=== PATIENT | female | born 1985 | race Caucasian/White ===

== ENCOUNTER → 2016-11-14 | Outpatient (CLI) | payer OTHER ==
[~2016-11-14] MED LIST: IBU600 MG PO; PERCOCET 325 MG1 TA2 PO; TRANDATE 100MG100 MG PO
== END ==
LOC: SUN.DIA 11:30
DX: O24.419 Gestational diabetes mellitus in pregnancy, unspecified control (principal); Z3A.32 32 weeks gestation of pregnancy
CPT/HCPCS: G0108

== ENCOUNTER → 2016-11-26 | Outpatient (CLI) | payer OTHER | LOC: SUN.DIA 11:45 | DX: O24.419 Gestational diabetes mellitus in pregnancy, unspecified control (principal); Z3A.33 33 weeks gestation of pregnancy | CPT/HCPCS: G0108 ==

== ENCOUNTER 2016-12-12 11:51 | Inpatient (IN) | payer OTHER ==
[~2016-12-12] VITALS: Ht 167.7 cm; Wt 88.6 kg
[2017-01-10] VITALS (66 sets, daily range): BP systolic 113–147; BP diastolic 56–85; PULSE 68–113; TEMP 97.4–98.9
[2017-01-10] MEDS ORDERED: TRANDATE 100MG100 MG PO (07:32)
[2017-01-10 07:58] LABS: BASO # 0.1 (0.0-0.2); BASO % 0.5 % (0.0-2.0); EOS # 0.3 (0.0-0.7); EOS % 1.7 % (0-4.0); GRAN # 11.5 (1.4-6.5); GRAN % 74.7 % (42.2-75.2); HEMOGLOBIN 12.3 g/dl (12.5-16.0); LYMPH % 19.8 % (20.0-51.0); MEAN CELL VOLUME 89 fl (80.0-100.0); MEAN CORPUSCULAR HEMOGLOBIN 30 pg (27.0-31.0); MEAN CORPUSCULAR HGB CONC 34 g/dl (33.0-37.0); MEAN PLATELET VOLUME 11.5 fl (7.4-10.4); MONO # 0.4 (0.1-0.6); MONO % 2.7 % (1.7-9.3); PLATELET COUNT 331 K/mm3 (130-400); RED BLOOD COUNT 4.04 M/mm3 (4.10-5.30); REDCELL DISTRIBUTION WIDTH-CV 12.5 % (11.5-14.5); WHITE BLOOD COUNT 15.3 K/mm3 (4.8-10.8)
[2017-01-10 08:03] LABS: HEMATOCRIT 36.1 % (37.0-47.0)
[2017-01-11] VITALS (9 sets, daily range): BP systolic 119–148; BP diastolic 57–74; PULSE 87–122; TEMP 97.4–98
[2017-01-11 10:12] LABS: HEMATOCRIT 30.8 % (37.0-47.0); HEMOGLOBIN 10.2 g/dl (12.5-16.0)
[2017-01-12 07:44] VITALS: BP 123/58; PULSE 78; TEMP 97.4
[2017-01-12] MEDS ORDERED: IBU600 MG PO (09:46)
[2017-01-12] MEDS ORDERED: PERCOCET 325 MG1 TA2 PO (09:46)
== END 2017-01-12 14:05 | disposition home or self-care (01) | DRG 766 ==
LOC: LDR 01-10 07:08 → OB 01-10 23:30 → EDSTATUS 01-15 08:22 → LDRO 01-15 11:51
PROVIDERS: Obstetrics & Gynecology
PROC: 10D00Z1 Extraction of Products of Conception, Low, Open Approach (ICD-10-PCS; principal; 2017-01-10)
PROC: 3E033VJ Introduction of Other Hormone into Peripheral Vein, Percutaneous Approach (ICD-10-PCS; 2017-01-10)
DX: O10.92 Unspecified pre-existing hypertension complicating childbirth (principal); O24.410 Gestational diabetes mellitus in pregnancy, diet controlled; O76 Abnormality in fetal heart rate and rhythm complicating labor and delivery; O69.81X0 Labor and delivery complicated by cord around neck, without compression, not applicable or unspecified; Z3A.39 39 weeks gestation of pregnancy; Z37.0 Single live birth
CPT/HCPCS: J0690; J1885; J2270; J2370; J2400; J2405; J2590; J2795; J7120

== ENCOUNTER → 2017-01-20 | Outpatient (CLI) | payer OTHER | LOC: OLC 15:07 | DX: Z39.1 Encounter for care and examination of lactating mother (principal); Z71.89 Other specified counseling ==

== ENCOUNTER → 2017-01-24 | Outpatient (CLI) | payer OTHER | LOC: OLC 11:26 | DX: Z39.1 Encounter for care and examination of lactating mother (principal); Z71.89 Other specified counseling ==

== ENCOUNTER → 2019-05-26 | Outpatient (CLI) | payer OTHER | LOC: DIA.ED 15:07 | DX: O24.419 Gestational diabetes mellitus in pregnancy, unspecified control (principal); Z3A.20 20 weeks gestation of pregnancy | CPT/HCPCS: G0108 ==

== ENCOUNTER 2019-08-06 06:44 | Inpatient (IN) | payer OTHER ==
[2019-08-06] VITALS (17 sets, daily range): BP systolic 120–145; BP diastolic 69–78; PULSE 75–99; TEMP 97.6–98.3
[~2019-08-06] VITALS: Ht 167.7 cm; Wt 91.4 kg
[2019-08-06] MEDS ORDERED: PRENATAL TABLET PO (09:07)
[2019-08-06 09:36] LABS: BASO # 0.1 (0.0-0.2); BASO % 0.3 % (0.0-2.0); EOS # 0.1 (0.0-0.7); EOS % 0.5 % (0-4.0); GRAN # 10.8 (1.4-6.5); GRAN % 75.3 % (42.2-75.2); HEMOGLOBIN 12.3 g/dl (12.5-16.0); LYMPH # 2.6 (1.2-3.4); LYMPH % 18.3 % (20.0-51.0); MEAN CELL VOLUME 91 fl (80.0-100.0); MEAN CORPUSCULAR HEMOGLOBIN 30 pg (27.0-31.0); MEAN CORPUSCULAR HGB CONC 33 g/dl (33.0-37.0); MEAN PLATELET VOLUME 10.8 fl (7.4-10.4); MONO # 0.7 (0.1-0.6); MONO % 4.9 % (1.7-9.3); PLATELET COUNT 364 K/mm3 (130-400); RED BLOOD COUNT 4.06 M/mm3 (4.10-5.30); REDCELL DISTRIBUTION WIDTH-CV 13.1 % (11.5-14.5)
--- NOTE | 2019-08-06 13:15 | NUR ---
Assumed care of patient. Rests in bed, alert. Just got back from section. Denies any needs at this time.
--- NOTE | 2019-08-06 14:00 | NUR ---
Rests in bed, alert, family at bedside.
[2019-08-07 00:15] VITALS: BP 118/69; PULSE 81; TEMP 98.4
[2019-08-07 04:00] VITALS: BP 111/67; PULSE 79; TEMP 98.2
[2019-08-07] MEDS ORDERED: PERCOCET 325 MG1 TA2 PO (09:06)
[2019-08-07] MEDS ORDERED: IBU600 MG PO (09:06)
[2019-08-07 09:30] LABS: HEMOGLOBIN 11.1 g/dl (12.5-16.0)
[2019-08-07 09:33] LABS: HEMATOCRIT 34.2 % (37.0-47.0)
[2019-08-07 16:36] VITALS: BP 122/68; PULSE 76; TEMP 98.1
[2019-08-07 18:40] VITALS: BP 119/66; PULSE 95; TEMP 98.4
[2019-08-08 08:30] VITALS: BP 129/68; PULSE 85; TEMP 97.7
--- NOTE | 2019-08-08 12:15 | NUR ---
discharge instructions reviewed with patient by Majo Montano RN. patient and escorted out to car with family
== END 2019-08-08 12:25 | disposition home or self-care (01) | DRG 787 ==
LOC: LDR 06:44 → OB 08:45
PROVIDERS: ADMIT Obstetrics & Gynecology
PROC: 10D00Z1 Extraction of Products of Conception, Low, Open Approach (ICD-10-PCS; principal; 2019-08-06)
DX: O34.211 Maternal care for low transverse scar from previous cesarean delivery (principal); O10.92 Unspecified pre-existing hypertension complicating childbirth; O24.420 Gestational diabetes mellitus in childbirth, diet controlled; Z3A.39 39 weeks gestation of pregnancy; Z37.0 Single live birth
CPT/HCPCS: J0690; J1885; J2270; J2370; J2405; J2590; J7120

== ENCOUNTER 2024-03-10 10:05 | Inpatient (IN) | payer OTHER ==
[~2024-03-10] VITALS: Ht 167.6 cm; Wt 98.6 kg
[2024-03-10] VITALS (17 sets, daily range): BP systolic 96–140; BP diastolic 50–82; PULSE 16–98; TEMP 98–98.7
[~2024-03-10 10:05] MED LIST changes: +EPINEPHrine 1 MG/1 ML Ampule ONE; +Ketorolac 30 MG/ML VIAL ONE; +NS 30 ML IV ONE; +Ondansetron 4 MG/2 ML VIAL ONE; +Oxytocin 10 UNITS/ML VIAL ONE; +PRENATAL TABLET PO; +Phenylephrine 10 MG/ML VIAL ONE
[2024-03-10] MEDS ORDERED: Ondansetron 4 MG/2 ML VIAL IV PRN ×2 (10:15→13:15)
[2024-03-10] MEDS ORDERED: LR 1,000 ML IV SCH ×2 (10:15→10:45)
[2024-03-10] MEDS ORDERED: droPERidol 2.5 MG/ML 2 ML VIAL IV PRN (10:15)
[2024-03-10] MEDS ORDERED: INDERAL 20MG20 MG PO (10:47)
[2024-03-10] MEDS ORDERED: OMEGA-3 1000 MG1 CAP PO (10:47)
[2024-03-10 10:55] LABS: BASO # 0.1 K/mm3 (0.0-0.2); BASO % 0.3 % (0.0-2.0); EOS # 0.2 K/mm3 (0.0-0.7); GRAN # 11.1 K/mm3 (1.4-6.5); GRAN % 72.6 % (42.2-75.2); HEMOGLOBIN 11.7 g/dl (12.5-16.0); LYMPH # 3.2 K/mm3 (1.2-3.4); MEAN CELL VOLUME 90 fl (80.0-100.0); MEAN CORPUSCULAR HEMOGLOBIN 31 pg (27-31); MEAN CORPUSCULAR HGB CONC 34 g/dl (33.0-37.0); MEAN PLATELET VOLUME 11.4 fl (7.4-10.4); MONO # 0.7 K/mm3 (0.1-0.6); MONO % 4.5 % (1.7-9.3); PLATELET COUNT 334 K/mm3 (130-400); RED BLOOD COUNT 3.84 M/mm3 (4.10-5.30); REDCELL DISTRIBUTION WIDTH-CV 12.8 % (11.5-14.5)
[2024-03-10 11:00] LABS: HEMATOCRIT 34.7 % (37.0-47.0)
[2024-03-10] MEDS ORDERED: Measles/Mumps/Rubella Virus Vaccine Live w Diluent 0.5 ML VIAL SQ SCH (13:15)
[2024-03-10] MEDS ORDERED: LR 1,000 ML IV PRN (13:15)
[2024-03-10] MEDS ORDERED: Naloxone 0.4 MG/ML VIAL IV PRN (13:15)
[2024-03-10] MEDS ORDERED: Acetaminophen 500 MG TAB PO SCH ×2 (13:15→23:00)
[2024-03-10] MEDS ORDERED: Magnes Hydrox (MOM) 80 MG/ML 30 ML CUP PO PRN (13:15)
[2024-03-10] MEDS ORDERED: Loratadine 10 MG TAB PO PRN (13:15)
[2024-03-10] MEDS ORDERED: oxyCODONE 5 MG TAB PO PRN (13:15)
[2024-03-10] MEDS ORDERED: Sennosides/Docusate 8.6-50 MG TAB PO SCH (17:00)
[2024-03-10] MEDS ORDERED: Ibuprofen 800 MG TAB PO SCH (19:04)
[2024-03-10] MEDS ORDERED: traZODone 50 MG TAB PO PRN (21:00)
[2024-03-10] MEDS ORDERED: Prenatal Vitamins/Iron/FA TAB PO SCH (21:00)
[2024-03-10] MEDS ORDERED: Labetalol 100 MG TAB PO SCH (21:00)
[2024-03-11 00:03] VITALS: BP 118/58; PULSE 83; TEMP 97.9
[2024-03-11 05:25] VITALS: BP 118/59; PULSE 75
[2024-03-11 06:49] VITALS: BP 127/69; PULSE 74; TEMP 98
[2024-03-11] MEDS ORDERED: Propranolol 20 MG TAB PO PRN (09:00)
--- NOTE | 2024-03-11 09:39 | NUR ---
Initial visit; Parents thanked Photography Sales Associate for looking in on them and offering congratulations and God's blessings. Photography Sales Associate thanked family for choosing [facility] and was glad to hear their stay here has been a pleasant one.
[2024-03-11 16:26] VITALS: BP 126/73; PULSE 78; TEMP 98
[2024-03-11 21:00] VITALS: BP 143/58; PULSE 79; TEMP 97.7
[2024-03-12 07:15] VITALS: BP 133/69; PULSE 78; TEMP 97.9
[2024-03-12] MEDS ORDERED: Acetaminophen 500 MG TAB PO SCH (10:00)
[2024-03-12] MEDS ORDERED: IBU800 M1 PO (10:05)
== END 2024-03-12 13:20 | disposition home or self-care (01) | DRG 787 ==
LOC: OB 10:05
PROVIDERS: ADMIT Obstetrics & Gynecology
PROC: 10D00Z1 Extraction of Products of Conception, Low, Open Approach (ICD-10-PCS; principal; 2024-03-10)
DX: O34.211 Maternal care for low transverse scar from previous cesarean delivery (principal); O10.92 Unspecified pre-existing hypertension complicating childbirth; Z3A.39 39 weeks gestation of pregnancy; Z37.0 Single live birth; Z23 Encounter for immunization
CPT/HCPCS: A9284; J0171; J0665; J0690; J1100; J1885; J2371; J2405; J2590